=== PATIENT | male | born 1990 | race Caucasian/White ===

== ENCOUNTER → 2018-11-04 | Outpatient (CLI) | payer OTHER | END | disposition home or self-care (01) | LOC: SONOGRAMA 12:47 | DX: N50.819 Testicular pain, unspecified (principal) ==

== ENCOUNTER 2019-02-27 13:27 | Outpatient (CLI) | payer OTHER | END 2019-02-27 13:31 | disposition home or self-care (01) | LOC: SONOGRAMA 13:27 | DX: I86.1 Scrotal varices (principal) ==